=== PATIENT | male | born 1965 | race Two or more races ===

== ENCOUNTER 2022-11-19 05:07 | Inpatient (IN) | payer OTHER ==
[~2022-11-19] VITALS: Ht 165.1 cm; Wt 70.8 kg
[2022-11-19 05:30] VITALS: BP 148/99; TEMP 97.7; O2SAT 97
--- NOTE | 2022-11-19 05:30 | NUR ---
RN ADMITTING NOTES PATIENT ARRIVED TO UNIT BY HIMSELF AT 0530, STEADY GAIT. A/O X4, ABLE TO MAKE NEEDS KNOWN, COOPERATIVE. VITAL SIGNS WNL. STABLE ON RA WITH NO SOB OR DISTRESS. DENIES PAIN AT THIS TIME. IV ACCESS INSERTED AT LAC #20G, PATENT, INTACT, FLUSHING WELL. LUNG SOUNDS CLEAR. NPO SINCE 11/18/22 2100. CONSENTS SIGNED. SKIN INTACT. BELONGINGS DOCUMENTED. ORIENTED TO UNIT AND HOW TO USE CALL LIGHT. SAFETY MEASURES PUT IN PLACE: BED LOCKED AND IN LOW POSITION, SIDE RAILS UP X2, CALL LIGHT AND TRAY TABLE WITHIN REACH. WILL CONTINUE TO MONITOR AND ASSIST.
[2022-11-19] MEDS ORDERED: POLYMYXIN B SULFATE 500,000 UNITS ONE (05:42)
[2022-11-19] MEDS ORDERED: BUPIVACAINE 0.5 % PF 150 MG/30 ML VIAL ONE (05:42)
--- NOTE | 2022-11-19 06:10 | NUR ---
RN NOTE: PT PICKED UP BY OR STAFF.
[2022-11-19] MEDS ORDERED: ROPIVACAINE HCL 0.5% 5 MG/ML 30ML VIAL ONE (06:25)
[2022-11-19] MEDS ORDERED: FENTANYL PF 100MCG/2ML AMPUL ONE (06:25)
[2022-11-19] MEDS ORDERED: TRANEXAMIC ACID 1,000 MG/10 ML VIAL ONE (06:25)
[2022-11-19] MEDS ORDERED: MIDAZOLAM HCL 2 MG/2ML VIAL ONE (06:26)
[2022-11-19] MEDS ORDERED: FAMOTIDINE/PF INJ 20 MG/2 ML VIAL IV ONE (06:26)
[2022-11-19] MEDS ORDERED: ROCURONIUM BROMIDE 50 MG/5 ML ONE (06:26)
[2022-11-19] MEDS ORDERED: ONDANSETRON HCL/PF 4 MG/2 ML VIAL IV PRN ×2 (06:30→09:30)
[2022-11-19] MEDS ORDERED: MENTHOL/CETYLPYRD (CEPACOL) 1 LOZ LOZENGE PO PRN (06:30)
[2022-11-19] MEDS ORDERED: CLONIDINE HCL 0.1 MG TABLET PO PRN (06:30)
[2022-11-19] MEDS ORDERED: MAG HYDROX/AL HYDROX/SIMETH 30 ML UDC PO PRN (06:30)
[2022-11-19] MEDS ORDERED: HYDROMORPHONE 1 MG/1 ML DISP.SYRIN IV PRN (06:30)
[2022-11-19] MEDS ORDERED: diphenhydrAMINE HCL 25 MG CAPSULE PO PRN (06:30)
[2022-11-19] MEDS ORDERED: TRANEXAMIC ACID 3,000 MG in SODIUM CHLORIDE IRRIG SOLUTION 70 ML IR ONE (07:00)
[2022-11-19] MEDS ORDERED: Magnesium 1 GM/2 ML VIAL ONE (07:06)
[2022-11-19] MEDS ORDERED: FLUMAZENIL 0.5 MG VIAL ONE (07:42)
[2022-11-19] MEDS: DOCUSATE SODIUM 100 MG CAPSULE PO SCH ×2 (09:00→17:34)
[2022-11-19] MEDS ORDERED: ACETAMINOPHEN 325 MG TABLET PO PRN ×2 (09:30)
[2022-11-19] MEDS ORDERED: BISACODYL SUPP (10 MG) 10 MG/SUPP.RECT SUPP.RECT RC PRN (09:30)
[2022-11-19] MEDS ORDERED: DOCUSATE SODIUM 250 MG CAPSULE PO PRN (09:30)
[2022-11-19] MEDS ORDERED: IV D5/0.45 NACL 1,000 ML IV PRN (09:30)
[2022-11-19] MEDS ORDERED: ZOLPIDEM TARTRATE 5 MG TABLET PO PRN (09:30)
[2022-11-19] MEDS ORDERED: SENNOSIDES 8.6 MG TABLET PO PRN (09:30)
[2022-11-19] MEDS ORDERED: HYDROCODONE/APAP 5/325MG TABLET PO PRN (09:30)
--- NOTE | 2022-11-19 09:30 | NUR ---
MS RN NOTE PATIENT BACK FROM OR TRANSPORTED VIA BED. PATIENT IS ALERT AND ORIENTED X 4. ON ROOM AIR WITH EQUAL AND UNLABORED BREATHING WITH NO RESPIRATORY DISTRESS NOTED. WITH LEFT AC G20 WITH NS RUNNING AT 70ML/HR ENDORSED BY OR NURSE. WITH RIGHT SHOULDER DRESSING WITH SLING ORDERED. COMFORT MEASURES PROVIDED. SAFETY MEASURES ENSURED WITH BVED ON LOWEST LOCKED POSITION, ALARM ON AND CALL LIGHT WITHIN REACH AT ALL TIMES. IN STABLE CONDITION.HOSPITALIST AND DR. CANTU NOTIFIED OF MD CONSULT. WILL CONTINUE WITH PLAN OF CARE.
[2022-11-19] MEDS: TAMSULOSIN 0.4 MG CAP.SR.24H PO SCH (12:07)
[2022-11-19 16:00] VITALS: BP 112/87; TEMP 97.7; O2SAT 95
--- NOTE | 2022-11-19 17:18 | NUR ---
MS RN NOTE RECEIVED A CALL FROM DR. CANTU TO GIVE PATIENT OXY IR FOR PAIN MANAGEMENT. WILL CONTINUE WITH PLAN OF CARE.
[2022-11-19] MEDS: oxyCODONE IR immediate release 5 MG PO PRN ×2 (17:36→21:05)
--- NOTE | 2022-11-19 18:55 | NUR ---
RN CLOSING NOTES PATIENT RESTING IN BED, A/O X4, NO SIGNS OF DISTRESS AND STABLE ON ROOM AIR. PATIENT IS ABLE TO VERBALIZE NEEDS. ON 07/27 PAIN ON HIS R SHOULDER, OXY IR PRN GIVEN. RE-ASSESSED PAIN, PATIENT VERBALIZED 04/28. ON REGULAR DIET. WITH IV ACCESS AT LAC #20G D5 1/2 NS AT 125ML/HR INFUSING WELL, NO SWELLING OR INFILTRATION NOTED. PATIENT IS AMBULATING. CARE PROVIDED AND MEDS TOLERATED WELL. SAFETY MEASURES MAINTAINED. BED LOCKED AND IN LOW POSITION, SIDE RAILS UP X2, CALL LIGHT AND TRAY TABLE WITHIN REACH. WILL ENDORSE TO NEXT SHIFT.
--- NOTE | 2022-11-19 19:30 | NUR ---
RN CLOSING NOTES PATIENT RESTING IN BED, A/O X4, NO SIGNS OF DISTRESS AND STABLE ON ROOM AIR. PATIENT IS ABLE TO VERBALIZE NEEDS. NO PAIN OR DISTRESS NOTED AT THIS TIME, ON REGULAR DIET. WITH IV ACCESS AT LAC #20G PATENT AND INTACT, NO SWELLING OR INFILTRATION NOTED. PATIENT IS AMBULATING. CARE PROVIDED AND MEDS TOLERATED WELL. SAFETY MEASURES MAINTAINED. BED LOCKED AND IN LOW POSITION, SIDE RAILS UP X2, CALL LIGHT AND TRAY TABLE WITHIN REACH. WILL CONTINUE TO MONITOR FOR SUNDAY. .
--- NOTE | 2022-11-19 19:30 | NUR ---
RN OPENING NOTES RECEIVED PATIENT ON BED,AWAKE A/O X 4; ON MODERATE HIGH BACK REST POSITION; ON ROOM AIR SATURATING WELL; NO SOB/ NOTED TA THIS TIME, STATUS POST RIGHT SHOULDER SURGERY NO PAIN OR POST OP COMPLICATION NOTED AT THIS TIME WITH ARM SLING. WITH IV ACCESS AT LAC #20G AND LEFT HAND #18 -SL PATENT AND INTACT NO SWELLING OR INFILTRATION NOTED TA THIS TIME. KEPT BED ON LOWER LOCKED POSITION, KEPT SIDE RAILS UP X 2 ALL THE TIME, KEPT CALL LIGHT WITHIN AT REACH. WILL CONTINUE TO MONITOR.
[2022-11-19 21:12] VITALS: BP 98/72; TEMP 98.2; O2SAT 95
[2022-11-19] MEDS ORDERED: PANTOPRAZOLE 40 MG TABLET.DR PO SCH (22:00)
[2022-11-20] MEDS: oxyCODONE IR immediate release 5 MG PO PRN ×3 (00:48→11:14)
--- NOTE | 2022-11-20 02:46 | NUR ---
RN NOTE WITNESSED CHANDLER CUELLAR WASTED 0.5ML OF DILAUDID (0.5MG) PARTIAL DOSE.
--- NOTE | 2022-11-20 02:47 | NUR ---
RN NOTES PATIENT COMPLAIN OF PAIN WITH PAIN SCALE OF 10/10. PATIENT BLOOD PRESSURE IS 125/83MMHG, HR: 78 DILAUDID 0.5MG GIVEN THRU IV WASTE ANOTHER 0.5MG OF THE DILAUDID WITH . WILL CONTINUE TO MONITOR.
--- NOTE | 2022-11-20 06:37 | NUR ---
RN MS CLOSING NOTES PATIENT IS IN BED, A/O X 4 ON MODERATE HIHG BACK REST POSITION; ON ROM AIR SATURATING WELL NO SOB/ NOTED AT THIS TIME. PATIENT IS AMBULATORY, WITH IV ACCESS AT LAC #20G -SL AND LEFT HAND #18G SL. PATENT AND INTACT NO SWELLING OR INFILTRATION NOTED AT THIS TIME. NO PAIN OR DISCOMFORT NOTED. PATIENT WITH RIGHT ARM SLING NO POST OP COMPLICATIONS NOTED AT THIS TIME. PAIN MEDICATION GIVEN, PM CARE RENDERED, KEPT PATIENT WARM AND COMFPRTABLE, KEPT SIDE RAILS UP X 2 ALL THE TIME, KEPT CALL LIGHT WITHIN AT REACH. WILL ENDORSED TO AM SHIFT FOR SUNDAY.
[2022-11-20 07:00] VITALS: BP 134/87; TEMP 97.9; O2SAT 96
[2022-11-20] MEDS ORDERED: SENNOSIDES 8.6 MG TABLET PO SCH (07:30)
--- NOTE | 2022-11-20 07:31 | NUR ---
RN MS OPENING NOTES PATIENT AWAKE IN BED, A/O X 4 ON MODERATE HIGH BACK REST POSITION; ON ROM AIR SATURATING WELL NO SOB/ NOTED AT THIS TIME. WITH IV ACCESS AT LAC #20G -SL AND LEFT HAND #18G SL. PATENT AND INTACT NO SWELLING OR INFILTRATION NOTED AT THIS TIME. WITH TOLERABLE PAIN ON OPERATIVE SITE NOTED. PATIENT WITH RIGHT ARM SLING. SAFETY MEASURES IN PLACE: SIDE RAILS UP X 2 , BED IN LOWEST POSITION, CALL LIGHT WITHIN REACH. WILL CONTINUE TO MONITOR PT
[2022-11-20] MEDS: DOCUSATE SODIUM 100 MG CAPSULE PO SCH (08:21)
[2022-11-20] MEDS: TAMSULOSIN 0.4 MG CAP.SR.24H PO SCH (08:21)
[2022-11-20] MEDS ORDERED: ASPIRIN 325 MG TABLET PO SCH (09:00)
--- NOTE | 2022-11-20 13:49 | NUR ---
Patient is 57 year old male presented to [facility] for right shoulder replacement. 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 Patient was open and pleasant to talk to. Patient reported that he resides at [facility] [place] [address] with his but will discharge to [address] [place] [address] with his father. Patient reported that his and father are his supports. He denied any substance abuse of any suicidal/homicidal ideation. DC Plan: Pt will go to his father's at [address] [place] [address] No referrals needed.
--- NOTE | 2022-11-20 14:06 | NUR ---
RN NOTES CHARGE NURSE JO ANN SPOKED TO DR GIMENEZ AND CLEARED PATIENT FOR DISCHARGE TODAY.
--- NOTE | 2022-11-20 15:17 | NUR ---
RN DISCHARGED NOTES RN PATIENT DISCHARGED HOME IN STABLE CONDITION. A/O X4, ABLE TO MAKE NEEDS KNOWN. AMBULATORY. PATIENT IS BREATHING EVENLY AND UNLABORED ON ROOM AIR, NO SIGNS OF ACUTE DISTRESS NOTED. PATIENT'S BELONGINGS ACCOUNTED FOR, BELONGING SHEET SIGNED BY PATIENT. PATIENT WERE GIVEN DISCHARGE INSTRUCTIONS AND VERBALIZED UNDERSTANDING. IV ACCESS ON LAC G#20 REMOVED, NO ACTIVE BLEEDING NOTED, DRY DRESSING APPLIED AT SITE. RIGHT SHOULDER SURGICAL SITE DRESSING C/D/I WITH RIGHT ARM SLING IN PLACE. PATIENT LEFT UNIT VIA WHEELCHAIR AT 1500 ACCOMPANIED BY ELVIS KURTZ. PT CALLED [facility] TO TAKE HIM HOME. MD AND CHARGE NURSE AWARE OF D/C.
== END 2022-11-20 15:35 | disposition home or self-care (01) | DRG 483 ==
LOC: DS 05:07 → MED 05:21
PROVIDERS: ADMIT Internal Medicine; ATTEND Internal Medicine
PROC: 0RRJ00Z Replacement of Right Shoulder Joint with Reverse Ball and Socket Synthetic Substitute, Open Approach (ICD-10-PCS; principal; 2022-11-19)
PROC: 0LS30ZZ Reposition Right Upper Arm Tendon, Open Approach (ICD-10-PCS; 2022-11-19)
DX: M19.011 Primary osteoarthritis, right shoulder (principal); K21.9 Gastro-esophageal reflux disease without esophagitis; X58.XXXA Exposure to other specified factors, initial encounter; Y99.0 Civilian activity done for income or pay; M75.21 Bicipital tendinitis, right shoulder; E78.00 Pure hypercholesterolemia, unspecified; K59.03 Drug induced constipation; T40.2X5A Adverse effect of other opioids, initial encounter; Y92.9 Unspecified place or not applicable
CPT/HCPCS: 82962-TC; 87081-TC; 88305-TC; 88311-TC; 97530-TC; A4217; A4223; A6209; C1776; G0378; J0690; J1100; J1170; J2250; J2370; J2405; J2704; J2765; J2795; J3010; J3475; J3490; J7050